=== PATIENT | male | born 1955 | race Caucasian/White ===

== ENCOUNTER 2016-12-21 20:36 | Emergency (ER) | payer OTHER ==
[2016-12-21 21:14] VITALS: BP 127/68
== END 2016-12-21 22:35 | disposition left against medical advice (07) ==
LOC: ED 20:36
DX: H57.11 Ocular pain, right eye (principal); Z53.21 Procedure and treatment not carried out due to patient leaving prior to being seen by health care provider

== ENCOUNTER → 2019-02-24 | Day surgery (SDC) | payer BC ==
[~2019-02-24] MED LIST: Iohexol 180 (CONTRAST) 10 ML SDV IV ONE; Lidocaine 2% PF * 5 ML VIAL ONE; Naloxone* 0.4 MG/ML 1 ML VIAL IV PRN; Ondansetron INJ* 2 MG/ML VIAL IV PRN; Propofol* 10 MG/ML 20 ML BTL ONE; cefTRIAXone(*) 2 GM ADDV.VIAL IVPB ONE; fentaNYL* 50 MCG/ML 2 ML VIAL (100 MCG VIAL) ONE; oxyCODONE/Acetamin 5/325 MG* TAB ONE
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
[2019-02-24] MEDS: fentaNYL* 50 MCG/ML 2 ML VIAL (100 MCG VIAL) IV PRN ×2 (18:39→18:54)
[2019-02-24 19:22] VITALS: BP 145/92
--- NOTE | 2019-02-25 00:09 | OP ---
CC: Marco A Carranza MD * DATE OF OPERATION: 02/24/19 - SDS DATE OF : 55 SURGEON: Dr. Mayorga. ANESTHESIOLOGIST: Dr. Diaz. ANESTHESIA: General. PRE-OP DIAGNOSES: 1. Left hydronephrosis. 2. Left ureteral calculus. POST-OP DIAGNOSES: 1. Left hydronephrosis. 2. Left ureteral calculus. OPERATIVE PROCEDURE: Cystoscopy, left retrograde pyelogram, left ureteroscopy, laser lithotripsy of left ureteral calculus and removal of calculus fragments and left stent insertion. COMPLICATIONS: None. STENT USED: 7-[place] stent, left ureter. INDICATIONS: Hugo Amaya is a 63-year-old gentleman who has had episodic pain secondary to a calculus in the left distal ureter. OPERATIVE FINDIN. Markedly large prostate, especially median lobe. 2. Two calculi in left distal ureter (1 measuring about 5 to 6 mm, 1 measuring 2 mm) with significant surrounding edema and inflammation at the site of impaction and left hydronephrosis. DESCRIPTION OF PROCEDURE: After induction of general anesthesia, the patient was placed in dorsal lithotomy position. Sequential compression devices were in place and functioning. Initial cystoscopy revealed a normal-appearing urethra and significantly large prostate with predominant median lobe enlargement. The bladder was examined and was unremarkable other than the fact that there seem to be significant edema and inflammation surrounding the left orifice. Some blood was noted at the left orifice. A guidewire was introduced and retrograde pyelogram revealed left hydronephrosis with dilated proximal ureter. A 6- [place] semi-rigid ureteroscope was introduced and advanced under direct vision about a centimeter above the ureterovesical junction, 5- to 6-mm calculus was noted to be impacted with significant surrounding edema and inflammation. This was carefully disengaged from the side of impaction and adjacent to this a smaller 2-mm calculus was noted. Using a 550 micron Holmium laser, the calculi were fragmented into smaller pieces which were then removed using a 3 pronged grasper. Once all the stone fragments had been removed from the ureter, a 7- [place] stent was introduced and positioned under fluoroscopy with good proximal and distal positioning obtained. Arreaga catheter was placed for temporary bladder drainage. The patient tolerated the procedure satisfactorily and was transferred back to the recovery area in stable condition. [id number]/[facility] #: [id number] [facility]
== END | disposition home or self-care (01) ==
LOC: OR 14:53
PROVIDERS: ATTEND Urology
DX: N13.2 Hydronephrosis with renal and ureteral calculous obstruction (principal); I25.10 Atherosclerotic heart disease of native coronary artery without angina pectoris; Z87.442 Personal history of urinary calculi; N40.0 Benign prostatic hyperplasia without lower urinary tract symptoms; Z79.01 Long term (current) use of anticoagulants; Z87.891 Personal history of nicotine dependence
CPT/HCPCS: 74420; 82365; 88300; A9270-GY; C1876; J0696; J2704; J3010

== ENCOUNTER 2023-08-13 11:11 | Observation (INO) ==
[~2023-08-13 11:11] MED LIST changes: -Iohexol 180 (CONTRAST) 10 ML SDV IV ONE; -Lidocaine 2% PF * 5 ML VIAL ONE; +Metoclopramide 5 MG/ML VIAL (10 mg) IV PRN; +NS 0.45% 1000 ml BAG 1,000 ML IV SCH; +Naloxone 0.4 mg VIAL 0.4 mg/ml 1 ml VIAL IV PRN; -Naloxone* 0.4 MG/ML 1 ML VIAL IV PRN; +Ondansetron 4 mg VIAL 2 MG/ML 2 ml VIAL IV PRN; -Ondansetron INJ* 2 MG/ML VIAL IV PRN; -Propofol* 10 MG/ML 20 ML BTL ONE; -cefTRIAXone(*) 2 GM ADDV.VIAL IVPB ONE; +fentaNYL 100 mcg/2 ml 50 MCG/ML VIAL IV PRN; -fentaNYL* 50 MCG/ML 2 ML VIAL (100 MCG VIAL) ONE; -oxyCODONE/Acetamin 5/325 MG* TAB ONE
[2023-08-13] MEDS ORDERED: Famotidine IV 10 MG/ML 2 ml VIAL (20 mg) ONE (11:33)
[2023-08-13] MEDS ORDERED: Scopolamine 1 mg/72hr PATCH ONE (11:38)
[2023-08-13 11:53] LABS: Rapid COVID-19 Molecular Undetected (Undetected)
[2023-08-13] MEDS: Scopolamine 1 mg/72hr PATCH TRANSDERM ONE (11:57)
[2023-08-13] MEDS ORDERED: Midazolam 2 mg/2 ml VIAL 1 mg/ml 2 ml VIAL (2 mg) ONE (13:15)
[2023-08-13] MEDS ORDERED: Propofol 10 MG/ML 20 ML BTL ONE (13:15)
[2023-08-13] MEDS ORDERED: fentaNYL 100 mcg/2 ml 50 MCG/ML VIAL ONE (13:15)
[2023-08-13] MEDS ORDERED: Lidocaine 2% PF 5 ML VIAL ONE (13:15)
[2023-08-13] MEDS ORDERED: Ondansetron 4 mg VIAL 2 MG/ML 2 ml VIAL IV PRN (13:26)
[2023-08-13] MEDS ORDERED: Furosemide 20 mg/2 ml IV VIAL ONE (13:55)
[2023-08-13] MEDS: Ampicillin ADVAN 2 GM in NS 0.9% 100 ML 100 ML IVPB ONE (16:49)
[2023-08-13] MEDS: NS 0.9% IVPB ONE (16:49)
[2023-08-13] MEDS: GENTAMICIN ADULT IVPB ONE (16:49)
[2023-08-13] MEDS: Acetaminophen IV 1 GM/100ML 1,000 MG/100 ML BAG IV ONE (16:50)
[2023-08-13] MEDS: Buffered Lidocaine 1% SYRIN 1 ml INTRADERM ONE (16:51)
[2023-08-13] MEDS: Lactated Ringers 1000 ml BAG 1,000 ML IV SCH (16:51)
[2023-08-13] MEDS: NS 0.9% 1000 ml BAG 1,000 ML IV SCH (17:33)
[2023-08-13] MEDS: Neomycin/Polym/Bacit TOP OINT 15 GM TOPICAL SCH (17:35)
[2023-08-13] MEDS: Magnesium Hydroxide LIQ 30 ML UDC PO SCH (20:45)
[2023-08-13] MEDS: CMCS: Dutasteride 0.5 mg CAP (NF) PO SCH (20:46)
[2023-08-14 09:40] VITALS: BP 99/56
== END 2023-08-14 10:30 | disposition home or self-care (01) ==
LOC: OR 11:11 → SSU 11:11
PROVIDERS: ADMIT Urology; ATTEND Urology